=== PATIENT | female | born 1975 | race Caucasian/White ===

== ENCOUNTER 2021-03-17 16:02 | Outpatient (CLI) | payer OTHER, SELFPAY ==
--- NOTE | ~2021-03-17 | US_ITS ---
EXAMINATION:US venous doppler LE LT INDICATION:Left knee pain TECHNIQUE: Multiple grayscale, color flow and Doppler images of the left lower extremity deep venous systems were obtained and reviewed. COMPARISON:No prior studies for comparison. FINDINGS: The common femoral, superficial femoral and popliteal veins demonstrate normal respiratory variation, augmentation and compressibility. Color flow is also seen within the posterior tibial, pe roneal, greater saphenous and profunda veins. There is a Giordano's cyst measuring up to 6.1 cm maximum dimension. IMPRESSION: 1: No lower extremity deep venous thrombosis. Reviewed, dictated and finalized at location A.
== END 2021-03-17 16:03 | disposition home or self-care (01) ==
DX: M25.562 Pain in left knee (principal); G89.29 Other chronic pain; M71.22 Synovial cyst of popliteal space [Baker], left knee
CPT/HCPCS: 93971